=== PATIENT | female | born 2000 | race Two or more races ===

== ENCOUNTER 2023-10-24 13:36 | Emergency (ER) | payer OTHER ==
[~2023-10-24] VITALS: Ht 165.1 cm; Wt 72.6 kg
[2023-10-24] MEDS ORDERED: HYOSCYAMINE SULFATE 0.125 MG TAB.SUBL SL STA (15:08)
[2023-10-24] MEDS ORDERED: FAMOTIDINE/PF 20 MG/2 ML VIAL IV PUSH STA (15:08)
[2023-10-24 15:43] LABS: URINE APPEARANCE Cloudy; URINE BILIRRUBIN Negative (NEGATIVE); URINE BLOOD Negative; URINE COLOR Yellow; URINE GLUCOSE Negative (NEGATIVE); URINE LEUKOCYTE Trace; URINE NITRATE Negative; URINE PROTEIN Negative (NEGATIVE); URINE RBC 3.8 uL (0.0-20.8); URINE UROBILINOGEN 0.2 E.U./dl; URINE WBC 23.3 uL (0.0-23.2)
[2023-10-24 15:44] LABS: HEMATOCRIT 36.2 % (36.0-45.00); HEMOGLOBIN 11.7 g/dL (12.0-15.00); MEAN CELL VOLUME 72.9 fL (80.00-100.00); MEAN CORPUSCULAR HEMOGLOBIN 23.6 pg (27.00-32.0); MEAN CORPUSCULAR HGB CONC 32.4 g/dl (32.0-36.0); PLATELET COUNT 375 K/uL (150-450); RED BLOOD COUNT 4.96 M/uL (4.00-6.00); RED CELL DISTRIBUTION WIDTH 17.7 % (11.5-14.5)
[2023-10-24 16:17] LABS: URINE BACTERIA > 9821.5 uL (0.0-1933)
== END 2023-10-24 17:20 | disposition home or self-care (01) ==
LOC: ER 13:37
PROVIDERS: Emergency Medicine
DX: N39.0 Urinary tract infection, site not specified (principal); Z91.02 Food additives allergy status

== ENCOUNTER 2024-03-04 08:36 | Emergency (ER) | payer OTHER ==
[~2024-03-04] VITALS: Ht 167.6 cm; Wt 79.4 kg
[2024-03-04 10:14] LABS: HEMOGLOBIN 12.6 g/dL (12.0-15.00); MEAN CELL VOLUME 78.3 fL (80.00-100.00); MEAN CORPUSCULAR HGB CONC 33.2 g/dl (32.0-36.0); PLATELET COUNT 203 K/uL (150-450); RED BLOOD COUNT 4.86 M/uL (4.00-6.00); RED CELL DISTRIBUTION WIDTH 16.4 % (11.5-14.5)
[2024-03-04 10:48] LABS: CALCIUM 9.3 mg/dL (8.5-10.1); CREATININE SERUM 0.83 mg/dL (0.55-1.02); GFR 85.96; POTASSIUM 3.72 mEq/L (3.5-5.1)
[2024-03-04 10:57] LABS: PH,URINE 5.5 (5.0-8.0); URINE APPEARANCE Cloudy; URINE BILIRRUBIN Negative (NEGATIVE); URINE BLOOD Negative; URINE COLOR Yellow; URINE GLUCOSE Negative (NEGATIVE); URINE LEUKOCYTE Trace; URINE NITRATE Negative; URINE UROBILINOGEN 0.2 E.U./dl
[2024-03-04 11:01] LABS: URINE BACTERIA 5839.8 uL (0.0-1933); URINE EPITHELIAL CELLS 63.2 uL (0.0-38.8); URINE RBC 5.6 uL (0.0-20.8)
[2024-03-04 11:10] LABS: URINE PROTEIN 100 (NEGATIVE)
[2024-03-04] MEDS ORDERED: CEFTRIAXONE SODIUM 1,000 MG VIAL IM STA (11:23)
[2024-03-04] MEDS ORDERED: PYRIDIUM100 MG PO (11:32)
[2024-03-04] MEDS ORDERED: DUI500 PO (11:33)
[2024-03-04] MEDS ORDERED: PYRIDIUM100 M1 PO (11:36)
== END 2024-03-04 12:28 | disposition home or self-care (01) ==
LOC: ER 08:37
PROVIDERS: Emergency Medicine
DX: B34.9 Viral infection, unspecified (principal); Z91.018 Allergy to other foods; N39.0 Urinary tract infection, site not specified; Z20.822 Contact with and (suspected) exposure to COVID-19

== ENCOUNTER 2025-06-06 09:10 | Emergency (ER) | payer OTHER ==
[~2025-06-06] VITALS: Ht 167.6 cm; Wt 81.6 kg
[~2025-06-06 09:10] MED LIST: DUI500 PO; PYRIDIUM100 M1 PO; PYRIDIUM100 MG PO
[2025-06-06] MEDS ORDERED: ACETAMINOPHEN 500 MG GEL..CAP PO STA (09:47)
[2025-06-06] MEDS ORDERED: DEXAMETHASONE SODIUM PHOSPHATE 4 MG/ML VIAL IM STA (09:47)
[2025-06-06] MEDS ORDERED: DEXAMETHASONE SODIUM PHOSPHATE 4 MG/ML VIAL ONE (10:36)
[2025-06-06] MEDS ORDERED: ACETAMINOPHEN 500 MG GEL..CAP PO ONE (10:36)
[2025-06-06 10:54] LABS: BASO % 0.4 % (0.1-1.2); EOS # 0.10 (0.04-0.54); EOS % 1.3 % (0.7-7.0); LYMPH # 2.09 (1.18-3.74); LYMPH % 26.7 % (19.3-53.1); MEAN PLATELET VOLUME 9.30 fl (9.4-12.4); MONO # 0.80 (0.24-0.82); MONO % 10.2 % (4.7-12.5); NEUT # 4.79 (1.56-6.13); NEUT % 61.3 % (34.0-71.1); RED CELL DISTRIBUTION WIDTH 15.7 % (11.6-14.4)
[2025-06-06 11:18] LABS: BUN CREA RATIO 15.0 (7.0-25.0); CREATININE SERUM 0.72 mg/dL (0.55-1.02); GFR 99.52; GLUCOSE FASTING 84.0 mg/dL (65-100); OSMOLALITY SERUM 272.0 MOSM/KG (275-295)
[2025-06-06 11:29] LABS: INR 1.05
[2025-06-06 14:01] LABS: URINE APPEARANCE Cloudy; URINE BILIRRUBIN Negative (NEGATIVE); URINE BLOOD Large; URINE COLOR Dark Yellow; URINE GLUCOSE Negative (NEGATIVE); URINE LEUKOCYTE Negative; URINE NITRATE Negative; URINE PROTEIN 30 (NEGATIVE); URINE UROBILINOGEN 0.2 E.U./dl
[2025-06-06 14:06] LABS: URINE BACTERIA 1946.3 uL (0.0-1933); URINE EPITHELIAL CELLS 24.1 uL (0.0-38.8); URINE RBC 262.8 uL (0.0-20.8); URINE WBC 50.6 uL (0.0-23.2)
[2025-06-06 14:11] LABS: URINE CAST 0.43 uL (0.0-1.40); URINE KETONE 40 (NEGATIVE)
[2025-06-06] MEDS ORDERED: ANTIVERT25 M2 PO (15:34)
== END 2025-06-06 15:41 | disposition home or self-care (01) ==
LOC: ER 09:10
PROVIDERS: General Practice
DX: R42 Dizziness and giddiness (principal); R10.21 Pelvic and perineal pain right side